=== PATIENT | female | born 2000 | race Caucasian/White ===

== ENCOUNTER 2020-03-05 20:28 | Emergency (ER) | payer MEDICAID ==
[~2020-03-05] VITALS: Ht 165.1 cm; Wt 73.0 kg
[2020-03-05] MEDS ORDERED: LIDOCAINE 1%/EPI 1:100,000 10 ML VIAL IJ ONE (21:00)
[2020-03-05] MEDS ORDERED: BACITRACIN ZINC OINT UDPKT TOP ONE (21:00)
[2020-03-05] MEDS ORDERED: LORAZEPAM 1MG TABLET PO ONE (21:30)
[2020-03-05] MEDS ORDERED: OLANZAPINE 5MG TABLET ODT PO ONE (21:30)
[2020-03-05] MEDS: LIDOCAINE HCL/EPINEPHRINE 1%-EPI 1:100,000 20 ML VIAL INFIL NR (21:48)
[2020-03-05 22:08] LABS: BASOPHILS % 0.8 % (0.0-2.0); EOSINOPHILS % 5.6 % (0.0-5.0); HEMATOCRIT. 38.7 % (36.0-48.0); HEMOGLOBIN. 13.4 g/dL (12.0-16.0); LYMPHOCYTES % 38.1 % (20.0-50.0); MEAN CORPUSCULAR HEMOGLOBIN 29.1 pg (28.0-32.0); MEAN CORPUSCULAR VOLUME 83.9 fL (81.0-99.0); MEAN PLATELET VOLUME 7.7 fl (7.4-10.4); MONOCYTES % 9.1 % (2.0-8.0); NEUTROPHILS % 46.4 % (40.0-76.0); PLATELET 272 x1000/uL (130-400); RED BLOOD CELL COUNT 4.61 mill/uL (4.2-5.4)
[2020-03-05 22:12] LABS: CHLORIDE 105 mEq/L (98-107)
[2020-03-05 22:15] LABS: HCG SCREEN NEGATIVE
[2020-03-05 22:16] LABS: ETHANOL BLOOD < 10 mg/dL
[2020-03-05] MEDS ORDERED: LORAZEPAM 2MG/ML CPJ IM ONE (23:00)
[2020-03-05] MEDS ORDERED: OLANZAPINE 10 MG/VIAL IM ONE (23:00)
[2020-03-06 01:09] LABS: CLARITY URINE CLEAR (CLEAR); COLOR URINE YELLOW (YELLOW); KETONES URINE NEGATIVE (NEGATIVE); LEUKOCYTE ESTERASE URINE NEGATIVE (NEGATIVE); NITRITE URINE NEGATIVE (NEGATIVE); OCCULT BLOOD URINE NEGATIVE (NEGATIVE); PH URINE 6.5 (4.5-8.0); PROTEIN URINE NEGATIVE (NEGATIVE); SPECIFIC GRAVITY URINE 1.007 (1.005-1.030); UROBILINOGEN URINE 0.2 E.U./dL (0.2-1.0)
[2020-03-06 01:20] LABS: *AMPHETAMINES SCREEN URINE NEGATIVE (NEGATIVE); *BARBITURATES SCREEN URINE NEGATIVE (NEGATIVE); *BENZODIAZEPINES SCREEN URINE NEGATIVE (NEGATIVE); *COCAINE SCREEN URINE NEGATIVE (NEGATIVE); METHADONE URINE SCREEN NEGATIVE (NEGATIVE)
[2020-03-06 01:21] LABS: CANNABINOID URINE SCREEN NEGATIVE (NEGATIVE); OPIATES URINE SCREEN NEGATIVE (NEGATIVE); PHENCYCLIDINE URINE SCREEN NEGATIVE (NEGATIVE)
[2020-03-06] MEDS ORDERED: LIDOCAINE 1%/EPI 1:100,000 10 ML VIAL IJ ONE (02:30)
[2020-03-06] MEDS: LIDOCAINE HCL/EPINEPHRINE 1%-EPI 1:100,000 20 ML VIAL INFIL NR (02:40)
[2020-03-06] MEDS ORDERED: LIDOCAINE HCL/EPINEPHRINE 1%-EPI 1:100,000 20 ML VIAL INFIL ONE (02:45)
[2020-03-06] MEDS ORDERED: QUETIAPINE FUMARATE 25MG TABLET PO PRN (22:00)
[2020-03-06] MEDS: QUETIAPINE FUMARATE 50MG TABLET PO SCH (22:04)
[2020-03-07] MEDS ORDERED: OLANZAPINE 10 MG/VIAL IM ONE (16:00)
[2020-03-07] MEDS ORDERED: LORAZEPAM 2MG/ML CPJ IM ONE (16:00)
[2020-03-07] MEDS: QUETIAPINE FUMARATE 50MG TABLET PO SCH (21:17)
[2020-03-08] MEDS: QUETIAPINE FUMARATE 50MG TABLET PO SCH (21:23)
[2020-03-09 03:24] VITALS: BP 125/71
[2020-03-09] MEDS ORDERED: IBUPROFEN 400MG TABLET PO ONE (07:45)
[2020-03-09] MEDS ORDERED: IBUPROFEN 400MG TABLET PO NR (08:15)
== END 2020-03-09 13:05 | disposition home or self-care (01) ==
LOC: ER 20:28
DX: S61.511A Laceration without foreign body of right wrist, initial encounter (principal); R45.851 Suicidal ideations; F32.9 Major depressive disorder, single episode, unspecified; F15.10 Other stimulant abuse, uncomplicated; J45.909 Unspecified asthma, uncomplicated; F12.10 Cannabis abuse, uncomplicated; Z20.822 Contact with and (suspected) exposure to COVID-19; W26.2XXA Contact with edge of stiff paper, initial encounter; W45.8XXA Other foreign body or object entering through skin, initial encounter; Y93.89 Activity, other specified; Y92.89 Other specified places as the place of occurrence of the external cause; Y99.8 Other external cause status
CPT/HCPCS: 12002; 36415; 80053; 80305; 80307; 80320; 80329; 81003; 81025; 84703; 85025; 93005; 96372; 99285; A4217; C9803; J2060; J3490; Z7610; G0480